=== PATIENT | female | born 1990 ===

== ENCOUNTER 2016-10-09 17:50 | Emergency (ER) | payer BC ==
[2016-10-09 17:59] VITALS: BP 136/65; PULSE 63; RESP 16; TEMP 98.8; O2SAT 98
--- NOTE | 2016-10-09 19:06 | ED PDOC ---
Upper Extremity Pain/Injury Time Seen by Provider: 10/09/16 18:12 Chief Complaint (Nursing): Upper Extremity Problem/Injury Chief Complaint (Provider): Finger laceration History Per: Patient History/Exam Limitations: no limitations Onset/Duration Of Symptoms: Hrs (1) Current Symptoms Are (Timing): Still Present Quality: "Pain" Additional Complaint(s): Joana Ewing is a 25 y/o right-handed dominant female presenting to the ER on 10/09/2016 with complaints of a laceration to the left first digit. Patient reports she sustained the injury one hour prior to arrival as she was trying to cut the bottom of her jeans, when the scissors slipped in her hand and cut her thumb. Patient notes she attempted to put pressure on the thumb when she noticed bleeding. Last tetanus is unknown. Last LMP is one month ago. Patient is unsure if she is . Past Medical History Reviewed: Historical Data, Nursing Documentation, Vital Signs Vital Signs: Last Vital Signs Temp 98.8 F 10/09/16 17:57 Pulse 63 10/09/16 17:57 Resp 16 10/09/16 17:57 BP 136/65 10/09/16 17:57 Pulse Ox 98 10/09/16 17:57 - Medical History PMH: No Chronic Diseases - Surgical History Surgical History: No Surg Hx - Family History Family History: States: Unknown Family Hx - Social History Current smoker - smoking cessation education provided: No Alcohol: None Drugs: Denies - Home Medications Home Medications: Ambulatory Orders Medication Instructions Recorded Bacitracin OINT 1 g TOP BID #1 tube 10/09/16 - Allergies Allergies/Adverse Reactions: Allergies Allergy/AdvReac Type Severity Reaction Status Date / Time No Known Allergies Allergy Verified 10/09/16 17:59 Review of Systems ROS Statement: Except As Marked, All Systems Reviewed And Found Negative Musculoskeletal: Positive for: Hand Pain ((+) finger pain ) Neurological: Negative for: Weakness, Numbness Physical Exam - Reviewed Nursing Documentation Reviewed: Yes Vital Signs Reviewed: Yes - Physical Exam Appears: Positive for: Non-toxic, No Acute Distress Head Exam: Positive for: ATRAUMATIC, NORMOCEPHALIC Skin: Positive for: Normal Color. Negative for: Rash Eye Exam: Positive for: Normal appearance Neck: Positive for: Normal Extremity: Positive for: Normal ROM (full ROM noted), Tenderness (mild tenderness to palpation), Other (1 cm lac lateral aspect of left PIP joint of left thumb w/ mild active bleeding) Neurologic/Psych: Positive for: Alert, Oriented. Negative for: Motor/Sensory Deficits - ECG O2 Sat by Pulse Oximetry: 98 Pulse Ox Interpretation: Normal Medical Decision Making Medical Decision Makin:12 Initial Impression- 25 y/o female with left first digit laceration PROCEDURE: LACERATION REPAIR Performed by the emergency provider Location: Left first digit Length: 1.0 cm Distal CMS: Normal. No deficits. Neurovascularly intact. Anesthesia: Lidocaine 1% Preparation: The wound was cleaned with NS and [place]. The area was prepped and draped in the usual sterile fashion. Procedure: In total, one suture was used used. Post-Procedure: Good closure and hemostasis. The patient tolerated the procedure well and there were no complications. CSM remains intact. Post procedure dressing applied Pt was advised to return to the ED in ten days for wound check and suture removal. She was advised to keep wound clean and dry for the first 24 hours, then clean wound and place Bacitracin ointment and dressing on wound daily for 10 days. Return for any worsening or change in symptoms. Documented by Manish Santizo, acting as a scribe for Cait Serrano PA-C All medical record entries made by the Scribe were at my direction and personally dictated by me. I have reviewed the chart and agree that the record accurately reflects my personal performance of the history, physical exam, medical decision making, and the department course for this patient. I have also personally directed, reviewed, and agree with the discharge instructions and disposition. Disposition - Clinical Impression Clinical Impression: Laceration of finger - Patient ED Disposition Is Patient to be Admitted: No Counseled Patient/Family Regarding: Diagnosis, Need For Followup, Rx Given - Disposition Referrals: [facility] [Outside] Disposition: Routine/Home Disposition Time: 19:31 Condition: STABLE Additional Instructions: Keep wound clean and dry for the first 24 hours. Clean gently with soap and water after this, and apply bacitracin or neosporin ointment on area daily. Keep wound covered. Return in 10 days for suture removal. Prescriptions: Bacitracin OINT 1 g TOP BID #1 tube Instructions: Care For Your Stitches (ED), Finger Laceration (ED) Forms: [employer] (Malay)
[2016-10-09] MEDS ORDERED: TDAP Vaccine 0.5 mL Syr IM ONE (19:13)
[2016-10-09] MEDS ORDERED: Absorbable Gelatin Sponge Size 12-7 TP ONE (19:30)
== END 2016-10-09 20:10 | disposition home or self-care (01) ==
LOC: H.ER 17:50
DX: S61.102A Unspecified open wound of left thumb with damage to nail, initial encounter (principal); W26.8XXA Contact with other sharp object(s), not elsewhere classified, initial encounter; Y92.89 Other specified places as the place of occurrence of the external cause